=== PATIENT | male | born 1970 | race Caucasian/White ===

== ENCOUNTER 2020-07-23 10:36 | Emergency (ER) | payer OTHER ==
[2020-07-23] MEDS ORDERED: Dexamethasone 4 MG Tab PO STA (11:18)
[2020-07-23] MEDS ORDERED: Ketorolac 15 MG/ML SDV IM ONE (11:18)
--- NOTE | 2020-07-23 12:36 | CT ---
Indication: Left low back pain with numbness Technique: Volumetric multidetector CT images of the lumbar spine were obtained without the administration of IV contrast. Comparison: None available. Findings: The lumbar vertebral body heights are grossly maintained. There is mild degenerative disc disease with minimal disc height loss and marginal osteophyte formation. There is minimal straightening of the normal lumbar lordosis with trace anterolisthesis of L4 on L5. There are small disc protrusions at multiple levels the largest at the L4-L5 and L5-S1 levels. There is moderate epidural lipomatosis of the L4-L5 and L5-S1 levels with moderate spinal canal effacement. There is moderate multilevel facet arthrosis. There is no displaced fracture or dislocation. The paraspinous soft tissues are grossly within normal limits. Impression: Mild multilevel degenerative disc disease worst at the L4-L5 and L5-S1 levels without evidence of acute osseous abnormality. Please note that all CT scans at this facility use dose modulation, iterative reconstruction, and/or weight-based dosing when appropriate to reduce radiation dose to as low as reasonably achievable. Dictated by Marshall Murry MD @ 07/23/2020 12:35:[address] Marshall Murry @ Jul 23 2020 12:35PM
--- NOTE | 2020-07-23 13:12 | EDM.PDOC ---
ED HPI GENERAL MEDICAL PROBLEM - General Chief Complaint: Back Pain or Injury Time Seen by Provider: 07/23/20 10:46 - History of Present Illness INITIAL COMMENTS - FREE TEXT/NARRATIVE: CHIEF COMPLAINT(S): Back pain HISTORY OF PRESENT ILLNESS: This is a 50-year-old man with a past medical history of chronic back pain that began when he was 21 years old when he was in the and a dummy was dropped onto his back Who comes to the emergency department with a chief complaint of back pain. The patient states that he is experiencing sharp pain which starts in the center and wraps around his left extremity which he rates as 6-7 out of 10 and intermittent. States that he is also experiencing some paresthesias of the right thigh. He denies any bowel incontinence, urinary incontinence, decrease sensation when wiping. He denies any fevers or chills or IV drug use. He denies any rash. He states that he is able to ambulate however it is painful. He states that he was evaluated at the [facility] for this and underwent physical therapy which did help initially and that ended approximately 6 weeks ago. He states that the pain was fine and then it slowly returned. States that he followed up with his primary care physician today and they told him to come to the emergency department. He states that he has tried ibuprofen without any relief and movement seems to exacerbate the pain. He states that he has not been doing any exercises and just stays still. Denies any other red flag symptoms. REVIEW OF SYSTEMS: Constitutional: Denies fever, chills. Eyes: Denies eye pain Ears, Nose, Mouth, & Throat: Denies earache Cardiovascular: Denies chest pain Respiratory: Denies shortness of breath Gastrointestinal: Denies bowel incontinence, nausea, vomiting, diarrhea, hematochezia. Genitourinary: Denies hematuria, urinary incontinence Skin:Denies a rash MSK: Positive for left lower back pain with radiation down left leg Neurological: Positive for left lower extremity paresthesias. Denies headache, blurred vision psychiatric: Denies depression PAST MEDICAL HISTORY: As per history of present illness and as reviewed below otherwise noncontributory. SURGICAL HISTORY: As per history of present illness and as reviewed below otherwise noncontributory. SOCIAL HISTORY: As per history of present illness and as reviewed below otherwise noncontributory. FAMILY HISTORY: As per history of present illness and as reviewed below otherwise noncontributory. EXAMINATION OF ORGAN SYSTEMS/BODY AREAS: Constitutional: Blood pressure is 171/99, heart rate 83, respiratory rate 18 with an oxygen saturation 97% on room air. Temperature 36.4 General: Overall well-appearing man who is in no acute distress. Psychiatric: Appropriate mood and affect. Eyes: No scleral icterus or conjunctival erythema ENMT: Moist mucous membranes. No pharyngeal erythema Cardiovascular: Regular, rate, and rhythm. No gallops, murmurs, or rubs. Bilateral upper extremity pulses symmetric and intact. No peripheral edema. No JVD. Respiratory: Lungs clear to auscultation bilaterally. No wheezes, rales, or rhonchi. Gastrointestinal: Soft, non-tender, non-distended. Normoactive bowel sounds Genitourinary: No suprapubic tenderness Musculoskeletal: The patient can fully flex and extend at the hips however there is pain on the left side when he does this. Negative straight leg test. Distal sensation is intact. On palpating the left buttock area there is severe tenderness to palpation with radiation down his leg. No midline cervical, thoracic, or lumbar spinal tenderness Skin: No lesions or abrasions. Neurological: Alert, GCS 15 distal sensation is intact. Gait is normal. MEDICAL DECISION MAKING AND COURSE IN THE ED WITH INTERPRETATION/REVIEW OF DIAGNOSTIC STUDIES: This is a 50-year-old man with a past medical history of chronic back pain that began when he was 21 years old when he was in the and a dummy was dropped onto his back Who comes to the emergency department with acute on chronic lower back pain without any red flag symptoms. We did obtain a bladder scan prevoid which was 365. The patient did need to urinate therefore we will get a post void residual. At this time we will treat the patient symptomatically with Decadron and Toradol. Will obtain a lumbar spine without contrast. I do not believe any further labs or imaging are indicated. Post void residual was 15 cc. The patient is adequately urinating and there is no signs of urinary retention. The radiological images were viewed by myself along with reading the report from the radiologist. Lumbar spine CT without contrast reveals multilevel degenerative disc disease worse at L4 and L5 and L5-S1 without any osseous abnormality. There is a moderate epidural lipomatosis of the L4-L5 and L5-S1 levels with moderate spinal canal effacement. After the image given the moderate spinal canal effacement I did speak with Dr. Lr neurosurgeon at [facility] in [place] who recommended conservative management. She states that this patient does not require any surgery. She states that the patient can follow-up in the clinic if he would like to be evaluated by neurosurgeon otherwise treat the pain with Tylenol, Motrin and movement exercises. I did discuss results with the patient. I discussed that he should follow-up with primary care physician and I did provide him the number with neurosurgery and gave him strict return precautions. I also provided him with a pain clinic number for further management of his pain. He was amenable discharge at this time and had no further questions DISPOSITION: The patient was discharged home in stable condition. The patient will follow up with primary care physician in 3 to 5 days CONDITION: Fair PROCEDURES: None FINAL IMPRESSION(S)/DIAGNOSES: 1. Acute on chronic pain secondary to degenerative disc disease of the L-spine Artem Aparicio M.D. Back Pain Score (Numeric/FACES): 7 - Related Data Allergies Allergy/AdvReac Type Severity Reaction Status Date / Time No Known Allergies Allergy Verified 07/23/20 10:54 Home Meds: Home Meds Allopurinol [Zyloprim] 300 mg PO DAILY 07/23/20 [History] Colchicine [Mitigare] 0.6 mg PO DAILY 07/23/20 [History] Losartan [Cozaar] 75 mg PO DAILY 07/23/20 [History] allopurinoL [Zyloprim] 100 mg PO DAILY 07/23/20 [History] atorvaSTATin [Lipitor] 10 mg PO DAILY 07/23/20 [History] Past Medical History Cardiovascular History: Reports: Hypertension Musculoskeletal History: Reports: Gout - Infectious Disease History Infectious Disease History: Reports: Chicken Pox Social & Family History - Family History Family Medical History: No Pertinent Family History - Tobacco Use Tobacco Use Status *Q: Current Every Day Tobacco User Years of Tobacco use: 25 Packs/Tins Daily: 2 - Caffeine Use Caffeine Use: Reports: Coffee - Recreational Drug Use Recreational Drug Use: No ED ROS GENERAL - Review of Systems Review Of Systems: See Below ED EXAM, GENERAL - Physical Exam Exam: See Below Course - Vital Signs Last Recorded V/S: Last Vital Signs Temp 36.4 C 07/23/20 10:43 Pulse 77 07/23/20 13:10 Resp 18 07/23/20 13:10 BP 126/90 07/23/20 13:10 Pulse Ox 97 07/23/20 13:10 - Orders/Labs/Meds Meds: Medications Discontinued Medications Generic Name Dose Route Start Last Admin Trade Name Jeannette PRN Reason Stop Dose Admin Dexamethasone 12 mg 07/23/20 11:18 07/23/20 11:37 Dexamethasone 4 Mg Tab PO 07/23/20 11:19 12 mg ONETIME STA Administration Ketorolac Tromethamine 15 mg 07/23/20 11:18 07/23/20 11:37 Ketorolac 15 Mg/Ml Sdv IM 07/23/20 11:19 15 mg ONETIME ONE Administration Departure - Departure Time of Disposition: 13:11 Disposition: Home, Self-Care 01 Condition: Fair Clinical Impression: Degenerative disc disease - Discharge Information Instructions: Degenerative Disk Disease, Chronic Back Pain, Mhcz-sl-Dire Referrals: Adrian Gonzales BIT SHAVER [Primary Care Provider] - Forms: ED Department Discharge Additional Instructions: Mr. Khalil you were evaluated here in the emergency department today On an emergent basis. At this time you do not have any red flag symptoms such as urinating or defecating on yourself accidentally, decreased sensation around your rectum, fever. We did obtain a CT of your lumbar spine which did show some arthritis of your spine and some moderate amount of fat in the epidural space. We did discuss this with neurosurgeon Dr. Lr at [facility] in [place] and she recommends conservative treatment at this time with exercises, pain relief and follow-up with your primary care physician. If you are concerned you are welcome to contact your office to set up an appointment. She is in office on Fridays. In addition if you have continued pain there is a number below to contact for the pain management clinic. Please take Tylenol and Motrin for pain relief. Please return for any new or worsening symptoms. Please use: Tylenol 500-1000mg every 6 hours (DO NOT TAKE MORE THAN 4000mg in 1 day) Ibuprofen 400mg every 6 hours (Take with food as it can cause ulcers, GI upset) Example schedule: 8:00 AM (Tylenol 500-1000mg) 11:00 AM (Ibuprofen 400mg) 2:00 PM (Tylenol 500-1000mg) 5:00 PM (Ibuprofen 400mg) In addition to Tylenol and Motrin you may use over the counter creams such as Voltaren Cream or Lidocaine Cream (Lidoderm) as needed 4 times a day for symptomatic relief. Ice the area 20 minutes 4 times per day [facility] [address] [place] [address] [id number] [facility] [address] Lr Neurosurgery [phone] The patient is informed of any results of their evaluation and diagnostic workup and all questions are answered. They are given discharge instructions and return precautions. The patient is stable for discharge. The patient states they understand and agree with the plan and that they will return if their symptoms get worse or if they have any new concerns. The following information is given to patients seen in the emergency department who are being discharged to home. This information is to outline your options for follow-up care. We provide all patients seen in our emergency department with a follow-up referral. The need for follow-up, as well as the timing and circumstances, are variable depending upon the specifics of your emergency department visit. If you don't have a primary care physician on staff, we will provide you with a referral. We always advise you to contact your personal physician following an emergency department visit to inform them of the circumstance of the visit and for follow-up with them and/or the need for any referrals to a consulting specialist. The emergency department will also refer you to a specialist when appropriate. This referral assures that you have the opportunity for follow-up care with a specialist. All of these measure are taken in an effort to provide you with optimal care, which includes your follow-up. Under all circumstances we always encourage you to contact your private physician who remains a resource for coordinating your care. When calling for follow-up care, please make the office aware that this follow-up is from your recent emergency room visit. If for any reason you are refused follow-up, please contact the [facility] Department at and asked to speak to the emergency department charge nurse. Sepsis Event Note (ED) - Evaluation Sepsis Screening Result: No Definite Risk
== END 2020-07-23 13:30 | disposition home or self-care (01) ==
LOC: MW.ED 10:36
DX: M51.36 Other intervertebral disc degeneration, lumbar region (principal); I10 Essential (primary) hypertension; M10.9 Gout, unspecified; Z72.0 Tobacco use; Z79.899 Other long term (current) drug therapy
CPT/HCPCS: 72131; 96372; 99283; J1885; J8540

== ENCOUNTER 2023-01-05 08:26 | Emergency (ER) | payer BC ==
[2023-01-05] MEDS ORDERED: Sodium Chloride 0.9% 2.5 ML Syringe FLUSH PRN (08:33)
[2023-01-05] MEDS ORDERED: Sodium Chloride 0.9% 10 ML Syringe FLUSH PRN (08:33)
[2023-01-05] MEDS ORDERED: Lactated Ringers 1,000 ML IV ONE (08:33)
[2023-01-05 08:49] LABS: BASE EXCESS VENOUS -3.8 (-2.0-3.0); PH,VENOUS 7.35 (7.31-7.41)
[2023-01-05 08:52] LABS: APPEARANCE,URINE CLEAR; BILIRUBIN,URINE NEGATIVE (NEGATIVE); COLOR,URINE YELLOW; GLUCOSE,URINE >=1000 mg/dL (NEGATIVE); KETONES,URINE 40 mg/dL (NEGATIVE); LEUKOCYTE ESTERASE,URINE NEGATIVE (NEGATIVE); NITRITE,URINE NEGATIVE (NEGATIVE); OCCULT BLOOD,URINE TRACE-INTACT (NEGATIVE); PH,URINE 5.5 (5.0-8.0); PROTEIN,URINE 100 mg/dL (NEGATIVE); UROBILINOGEN,URINE 0.2 EU/dL (<2.0)
[2023-01-05 09:04] LABS: RBC,URINE 0-2 (0-2/HPF)
[2023-01-05 09:05] LABS: EPITHELIAL CELLS,URINE RARE (NONE-FEW); WBC,URINE 0-2 (0-5/HPF)
[2023-01-05 09:31] LABS: HEMOGLOBIN A1C 13.6 %
[2023-01-05 09:52] LABS: BASOPHILS PERCENT AUTO 1.3 % (0.0-1.0); EOSINOPHILS ABSOLUTE AUTO 0.12 K/uL (0.00-0.45); EOSINOPHILS PERCENT AUTO 1.5 % (0.0-6.0); HEMATOCRIT 40.9 % (42.0-52.0); IMMATURE GRAN ABSOLUTE AUTO 0.12 K/uL (0.00-0.05); IMMATURE GRAN PERCENT AUTO 1.5 % (0.0-0.4); LYMPHOCYTES ABSOLUTE AUTO 2.22 K/uL (1.00-4.80); LYMPHOCYTES PERCENT AUTO 28.5 % (24.0-44.0); MEAN CORPUSCULAR VOLUME 81.6 fL (83.0-99.0); MEAN PLATELET VOLUME 10.7 fL (9.4-12.4); MONOCYTES ABSOLUTE AUTO 0.64 K/uL (0.00-0.80); MONOCYTES PERCENT AUTO 8.2 % (0.0-8.0); NRBC ABSOLUTE 0.06 K/uL (0.00-0.02); NRBC PERCENT 0.8 /100WBC (0.0-0.2); PLATELET COUNT,PLT 238 K/uL (150-400); RED BLOOD CELL COUNT 5.01 M/uL (4.52-5.90)
[2023-01-05 10:00] LABS: A/G RATIO 1.2 (0.9-1.6); ALBUMIN 4.1 g/dL (3.4-5.0); BILIRUBIN TOTAL 0.6 mg/dL (0.2-1.0); CALCIUM 9.7 mg/dL (8.5-10.1); CARBON DIOXIDE,CO2 22.1 mmol/L (21.0-32.0); CREATININE 1.1 mg/dL (0.8-1.3); EST CRCL DRUG DOSING (CG) 82.95 mL/min; MAGNESIUM 1.8 mg/dL (1.8-2.4); PHOSPHORUS 5.1 mg/dL (2.6-4.7); POTASSIUM,K 4.4 mmol/L (3.5-5.1); PROTEIN TOTAL,TP 7.6 g/dL (6.4-8.2); TSH ULTRASENSITIVE 2.68 uIU/mL (0.36-3.74)
[2023-01-05 10:06] LABS: HEMOGLOBIN 13.7 g/dL (14.0-18.0); MEAN CORPUSCULAR HEMOGLOBIN 27.4 pg (28.0-32.0)
[2023-01-05 10:09] LABS: MEAN CORPUSCULAR HGB CONC 33.5 g/dL (32.0-36.0)
[2023-01-05] MEDS ORDERED: Sodium Chloride 0.9% 1,000 ML IV ONE (10:31)
[2023-01-05] MEDS ORDERED: Glucagon,Human Recombinant 1 MG Vial IM PRN (10:32)
[2023-01-05] MEDS ORDERED: Insulin Aspart 100 Units/ML 3 ML Pen SUBCUT STA (10:32)
[2023-01-05] MEDS ORDERED: 50% Dextrose in Water 50 ML Syringe IVPUSH PRN (10:32)
[2023-01-05] MEDS ORDERED: Insulin Glargine,Hum.Rec.Anlog 100 UNIT/ML 3 ML Pen SUBCUT STA (10:37)
== END 2023-01-05 13:49 | disposition home or self-care (01) ==
LOC: MW.ED 08:26
DX: E11.9 Type 2 diabetes mellitus without complications (principal); I10 Essential (primary) hypertension; Z79.899 Other long term (current) drug therapy; Z79.4 Long term (current) use of insulin
CPT/HCPCS: 36415; 70450; 71045; 80053; 81001; 82009; 82803; 82947; 83036; 83690; 83735; 84100; 84443; 84484; 85025; 93005; 96360; 96361; 99285; A9270; J3490; J7030; J7120; 93010; 99284

== ENCOUNTER 2023-05-30 10:46 | Emergency (ER) | payer BC ==
[2023-05-30] MEDS ORDERED: Ketorolac 30 MG/ML SDV IVPUSH ONE (11:20)
[2023-05-30] MEDS: Acetaminophen/HYDROcodone 325-5 MG Tab PO ONE (11:29)
[2023-05-30] MEDS: methylPREDNISolone Sodium Succinate 125 MG/2 ML SDV IVPUSH ONE (11:29)
[2023-05-30 11:46] LABS: BASOPHILS ABSOLUTE AUTO 0.09 K/uL (0.00-0.20); BASOPHILS PERCENT AUTO 0.8 % (0.0-1.0); EOSINOPHILS PERCENT AUTO 0.8 % (0.0-6.0); HEMATOCRIT 41.9 % (42.0-52.0); HEMOGLOBIN 14.7 g/dL (14.0-18.0); IMMATURE GRAN ABSOLUTE AUTO 0.07 K/uL (0.00-0.05); IMMATURE GRAN PERCENT AUTO 0.6 % (0.0-0.4); LYMPHOCYTES ABSOLUTE AUTO 2.73 K/uL (1.00-4.80); LYMPHOCYTES PERCENT AUTO 22.9 % (24.0-44.0); MEAN CORPUSCULAR HEMOGLOBIN 29.1 pg (28.0-32.0); MEAN CORPUSCULAR HGB CONC 35.1 g/dL (32.0-36.0); MEAN PLATELET VOLUME 8.8 fL (9.4-12.4); MONOCYTES ABSOLUTE AUTO 1.18 K/uL (0.00-0.80); MONOCYTES PERCENT AUTO 9.9 % (0.0-8.0); NEUTROPHILS ABSOLUTE AUTO 7.77 K/uL (1.80-7.70); PLATELET COUNT,PLT 361 K/uL (150-400); RED BLOOD CELL COUNT 5.05 M/uL (4.52-5.90); WHITE BLOOD CELL COUNT,WBC 11.94 K/uL (3.9-11.3)
[2023-05-30] MEDS: fentaNYL 100 MCG/2 ML SDV IVPUSH ONE (11:58)
[2023-05-30 12:18] LABS: A/G RATIO 1.1 (0.9-1.6); BILIRUBIN TOTAL 0.6 mg/dL (0.2-1.0); C-REACTIVE PROTEIN 1.25 mg/dL (<0.3); CALCIUM 9.7 mg/dL (8.5-10.1); CARBON DIOXIDE,CO2 22.5 mmol/L (21.0-32.0); EST CRCL DRUG DOSING (CG) 81.71 mL/min; POTASSIUM,K 3.9 mmol/L (3.5-5.1); PROTEIN TOTAL,TP 7.7 g/dL (6.4-8.2); URIC ACID 3.4 mg/dL (2.6-7.2)
== END 2023-05-30 13:30 | disposition home or self-care (01) ==
LOC: MW.ED 10:46
DX: M25.522 Pain in left elbow (principal); M25.521 Pain in right elbow; M25.512 Pain in left shoulder; M25.511 Pain in right shoulder; M25.552 Pain in left hip; M25.551 Pain in right hip; I10 Essential (primary) hypertension; E11.9 Type 2 diabetes mellitus without complications; Z75.8 Other problems related to medical facilities and other health care; Z79.84 Long term (current) use of oral hypoglycemic drugs; Z79.899 Other long term (current) drug therapy; Z79.4 Long term (current) use of insulin; Z86.19 Personal history of other infectious and parasitic diseases
CPT/HCPCS: 36415; 80053; 82550; 84443; 84550; 85025; 85652; 86140; 96374; 96375; 99284; A9270; J2930; J3010

== ENCOUNTER 2023-07-13 06:31 | Emergency (ER) | payer OTHER, BC ==
[2023-07-13] MEDS: Acetaminophen/HYDROcodone 325-10 MG Tab PO ONE (07:40)
[2023-07-13] MEDS: Diazepam 2 MG Tab PO ONE (07:40)
== END 2023-07-13 08:54 | disposition home or self-care (01) ==
LOC: MW.ED 06:31
DX: M54.2 Cervicalgia (principal); M54.9 Dorsalgia, unspecified; M25.519 Pain in unspecified shoulder; E11.9 Type 2 diabetes mellitus without complications; Z79.899 Other long term (current) drug therapy; Z79.84 Long term (current) use of oral hypoglycemic drugs; Z79.4 Long term (current) use of insulin
CPT/HCPCS: 99283; A9270

== ENCOUNTER 2025-01-14 17:15 | Emergency (ER) | payer BC, OTHER ==
[2025-01-14] MEDS ORDERED: Sodium Chloride 0.9% 10 ML Syringe FLUSH PRN (17:17)
[2025-01-14] MEDS ORDERED: Sodium Chloride 0.9% 2.5 ML Syringe FLUSH PRN (17:17)
[2025-01-14 17:28] LABS: BASOPHILS ABSOLUTE AUTO 0.10 K/uL (0.00-0.20); BASOPHILS PERCENT AUTO 1.2 % (0.0-1.0); EOSINOPHILS ABSOLUTE AUTO 0.06 K/uL (0.00-0.45); EOSINOPHILS PERCENT AUTO 0.7 % (0.0-6.0); IMMATURE GRAN ABSOLUTE AUTO 0.06 K/uL (0.00-0.05); IMMATURE GRAN PERCENT AUTO 0.7 % (0.0-0.4); LYMPHOCYTES ABSOLUTE AUTO 3.11 K/uL (1.00-4.80); LYMPHOCYTES PERCENT AUTO 36.7 % (24.0-44.0); MEAN PLATELET VOLUME 9.9 fL (9.4-12.4); MONOCYTES ABSOLUTE AUTO 0.69 K/uL (0.00-0.80); MONOCYTES PERCENT AUTO 8.1 % (0.0-8.0); NEUTROPHILS ABSOLUTE AUTO 4.45 K/uL (1.80-7.70); NEUTROPHILS PERCENT AUTO 52.6 % (41.0-71.0); NRBC ABSOLUTE 0.00 K/uL (0.00-0.02); NRBC PERCENT 0.0 /100WBC (0.0-0.2); PLATELET COUNT,PLT 272 K/uL (150-400); RED BLOOD CELL COUNT 5.14 M/uL (4.52-5.90); WHITE BLOOD CELL COUNT,WBC 8.47 K/uL (3.9-11.3)
[2025-01-14] MEDS: Ondansetron 4 MG/2 ML SDV IVPUSH ONE (17:37)
[2025-01-14 17:41] LABS: INR 1.02 (0.86-1.11)
[2025-01-14] MEDS ORDERED: niCARdipine/Normal Saline 20 MG/200 ML BAG IV SCH (17:45)
[2025-01-14] MEDS: levETIRAcetam 500 MG/5 ML SDV IVPUSH ONE (17:52)
[2025-01-14] MEDS: Labetalol 100 MG/20 ML MDV IVPUSH ONE (17:53)
[2025-01-14 18:06] LABS: A/G RATIO 1.2 (0.9-1.6); ALANINE AMINOTRANSFERASE,ALT 33 IU/L (14-63); ASPARTATE AMNIOTRANSFERASE,AST 20 IU/L (15-37); BILIRUBIN TOTAL 0.4 mg/dL (0.2-1.0); BLOOD UREA NITROGEN,BUN 12 mg/dL (7.0-18.0); CARBON DIOXIDE,CO2 22.2 mmol/L (21.0-32.0); CHLORIDE,CL 95 mmol/L (98-107); CREATININE 1.1 mg/dL (0.8-1.3); ESTIMATED GFR 81 mL/min (>60); ETHANOL BLOOD MEDICAL 103 mg/dL; GLUCOSE RANDOM 332 mg/dL (74-106); POTASSIUM,K 3.5 mmol/L (3.5-5.1); PROTEIN TOTAL,TP 7.3 g/dL (6.4-8.2); SODIUM,NA 129 mmol/L (136-148)
[2025-01-14] MEDS: Diphtheria,Pertussis(Acell),Tetanus Vaccine 0.5 ML Syringe IM ONE (18:27)
[2025-01-14] MEDS: niCARdipine/Normal Saline 20 MG/200 ML BAG IV SCH (18:55)
== END 2025-01-14 19:07 ==
LOC: MW.ED 17:15
DX: S06.5X1A Traumatic subdural hemorrhage with loss of consciousness of 30 minutes or less, initial encounter (principal); S06.6X1A Traumatic subarachnoid hemorrhage with loss of consciousness of 30 minutes or less, initial encounter; S01.01XA Laceration without foreign body of scalp, initial encounter; F10.120 Alcohol abuse with intoxication, uncomplicated; E11.9 Type 2 diabetes mellitus without complications; I10 Essential (primary) hypertension; R91.1 Solitary pulmonary nodule; Z79.899 Other long term (current) drug therapy; Z23 Encounter for immunization; Y90.5 Blood alcohol level of 100-119 mg/100 ml; Z79.84 Long term (current) use of oral hypoglycemic drugs; Y04.8XXA Assault by other bodily force, initial encounter; Y92.511 Restaurant or cafe as the place of occurrence of the external cause
CPT/HCPCS: 12001; 36415; 70450; 71045; 72125; 80053; 80307; 83690; 85025; 85610; 85730; 90471; 90715; 93005; 96374; 96375; 99285; J1920; J1953; J2404; J2405; 93010

== ENCOUNTER 2025-01-19 18:52 | Emergency (ER) | payer SELFPAY ==
[2025-01-19] MEDS ORDERED: Sodium Chloride 0.9% 2.5 ML Syringe FLUSH PRN (19:00)
[2025-01-19] MEDS ORDERED: Sodium Chloride 0.9% 10 ML Syringe FLUSH PRN (19:00)
[2025-01-19] MEDS ORDERED: Labetalol 100 MG/20 ML MDV IVPUSH ONE (19:09)
[2025-01-19] MEDS ORDERED: Naloxone 0.4 MG/ML SDV IVPUSH PRN (19:20)
[2025-01-19 19:21] LABS: BASOPHILS ABSOLUTE AUTO 0.04 K/uL (0.00-0.20); BASOPHILS PERCENT AUTO 0.4 % (0.0-1.0); EOSINOPHILS ABSOLUTE AUTO 0.01 K/uL (0.00-0.45); EOSINOPHILS PERCENT AUTO 0.1 % (0.0-6.0); IMMATURE GRAN ABSOLUTE AUTO 0.05 K/uL (0.00-0.05); IMMATURE GRAN PERCENT AUTO 0.5 % (0.0-0.4); LYMPHOCYTES ABSOLUTE AUTO 1.29 K/uL (1.00-4.80); LYMPHOCYTES PERCENT AUTO 13.1 % (24.0-44.0); MEAN PLATELET VOLUME 9.8 fL (9.4-12.4); MONOCYTES ABSOLUTE AUTO 0.86 K/uL (0.00-0.80); MONOCYTES PERCENT AUTO 8.7 % (0.0-8.0); NEUTROPHILS ABSOLUTE AUTO 7.60 K/uL (1.80-7.70); NEUTROPHILS PERCENT AUTO 77.2 % (41.0-71.0); NRBC ABSOLUTE 0.00 K/uL (0.00-0.02); NRBC PERCENT 0.0 /100WBC (0.0-0.2); PLATELET COUNT,PLT 307 K/uL (150-400); RED BLOOD CELL COUNT 4.84 M/uL (4.52-5.90); WHITE BLOOD CELL COUNT,WBC 9.85 K/uL (3.9-11.3)
[2025-01-19] MEDS: Ondansetron 4 MG/2 ML SDV IVPUSH ONE (19:23)
[2025-01-19 19:36] LABS: INR 1.06 (0.86-1.11); PTT,PARTIAL THROMBOPLSTIN TIME 27.3 SEC (23.9-30.7)
[2025-01-19 19:48] LABS: A/G RATIO 0.8 (0.9-1.6); ALANINE AMINOTRANSFERASE,ALT 21.0 IU/L (14-63); ASPARTATE AMNIOTRANSFERASE,AST 15.0 IU/L (15-37); BILIRUBIN TOTAL 0.7 mg/dL (0.2-1.0); BLOOD UREA NITROGEN,BUN 12.0 mg/dL (7.0-18.0); CARBON DIOXIDE,CO2 25.9 mmol/L (21.0-32.0); CHLORIDE,CL 99.0 mmol/L (98-107); CREATININE 1.0 mg/dL (0.8-1.3); EST CRCL DRUG DOSING (CG) 83.6 mL/min; GLUCOSE RANDOM 245.0 mg/dL (74-106); POTASSIUM,K 3.9 mmol/L (3.5-5.1); PROTEIN TOTAL,TP 7.0 g/dL (6.4-8.2); SODIUM,NA 135.0 mmol/L (136-148)
[2025-01-19 19:55] LABS: ESTIMATED GFR 91.0 mL/min (>60)
[2025-01-19] MEDS: Metoprolol Tartrate 5 MG/5 ML SDV IVPUSH ONE (19:57)
[2025-01-19] MEDS: niCARdipine/Normal Saline 20 MG/200 ML BAG IV SCH (20:29)
== END 2025-01-19 20:31 ==
LOC: MW.ED 18:52
DX: S06.36AA Traumatic hemorrhage of cerebrum, unspecified, with loss of consciousness status unknown, initial encounter (principal); I10 Essential (primary) hypertension; E11.9 Type 2 diabetes mellitus without complications; Z79.84 Long term (current) use of oral hypoglycemic drugs; Z79.899 Other long term (current) drug therapy; X58.XXXA Exposure to other specified factors, initial encounter
CPT/HCPCS: 36415; 70450; 80053; 83690; 83735; 85025; 85610; 85730; 96374; 96375; 99285; J0616; J2404; J2405; A9270-GY; J1171

== ENCOUNTER 2025-01-22 22:14 | Observation (INO) | payer SELFPAY ==
[2025-01-22] MEDS ORDERED: Sodium Chloride 0.9% 10 ML Syringe FLUSH PRN (22:22)
[2025-01-22] MEDS ORDERED: Sodium Chloride 0.9% 2.5 ML Syringe FLUSH PRN (22:22)
[2025-01-22 22:29] LABS: BASE EXCESS VENOUS 4.8 (-2.0-3.0); BASOPHILS ABSOLUTE AUTO 0.07 K/uL (0.00-0.20); BASOPHILS PERCENT AUTO 0.7 % (0.0-1.0); BICARBONATE,VENOUS 29.0 mEq/L (22-29); EOSINOPHILS ABSOLUTE AUTO 0.08 K/uL (0.00-0.45); EOSINOPHILS PERCENT AUTO 0.8 % (0.0-6.0); IMMATURE GRAN ABSOLUTE AUTO 0.14 K/uL (0.00-0.05); IMMATURE GRAN PERCENT AUTO 1.3 % (0.0-0.4); LYMPHOCYTES ABSOLUTE AUTO 2.47 K/uL (1.00-4.80); LYMPHOCYTES PERCENT AUTO 23.3 % (24.0-44.0); MEAN PLATELET VOLUME 9.5 fL (9.4-12.4); MONOCYTES ABSOLUTE AUTO 1.29 K/uL (0.00-0.80); MONOCYTES PERCENT AUTO 12.2 % (0.0-8.0); NEUTROPHILS ABSOLUTE AUTO 6.55 K/uL (1.80-7.70); NEUTROPHILS PERCENT AUTO 61.7 % (41.0-71.0); NRBC ABSOLUTE 0.00 K/uL (0.00-0.02); NRBC PERCENT 0.0 /100WBC (0.0-0.2); PCO2 VENOUS 41.0 mmHG (41-51); PH,VENOUS 7.46 (7.32-7.43); PLATELET COUNT,PLT 431 K/uL (150-400); PO2 VENOUS 48.0 mmHG (35-45); RED BLOOD CELL COUNT 5.46 M/uL (4.52-5.90); WHITE BLOOD CELL COUNT,WBC 10.60 K/uL (3.9-11.3)
[2025-01-22] MEDS: Iopamidol 755 MG/ML 500 ML Multipack Bottle IVPUSH STA (22:33)
[2025-01-22 22:56] LABS: A/G RATIO 0.9 (0.9-1.6); ALANINE AMINOTRANSFERASE,ALT 29 IU/L (14-63); ASPARTATE AMNIOTRANSFERASE,AST 20 IU/L (15-37); BILIRUBIN TOTAL 0.3 mg/dL (0.2-1.0); BLOOD UREA NITROGEN,BUN 25 mg/dL (7.0-18.0); CARBON DIOXIDE,CO2 27.2 mmol/L (21.0-32.0); CHLORIDE,CL 94 mmol/L (98-107); CREATININE 1.4 mg/dL (0.8-1.3); POTASSIUM,K 3.9 mmol/L (3.5-5.1); PROTEIN TOTAL,TP 7.7 g/dL (6.4-8.2); SODIUM,NA 131 mmol/L (136-148)
[2025-01-22 22:57] LABS: ESTIMATED GFR 60 mL/min (>60); GLUCOSE RANDOM 530 mg/dL (74-106)
[2025-01-22] MEDS ORDERED: 50% Dextrose in Water 50 ML Syringe IVPUSH PRN (22:58)
[2025-01-22] MEDS: Insulin Regular, Human 100 Units/ML 10 ML Vial IVPUSH ONE (23:08)
[2025-01-22 23:18] LABS: INR 0.93 (0.86-1.11); PTT,PARTIAL THROMBOPLSTIN TIME 24.3 SEC (23.9-30.7)
[2025-01-23] MEDS ORDERED: Sodium Chloride 0.9% 10 ML Syringe FLUSH PRN (08:10)
[2025-01-23] MEDS ORDERED: Sodium Chloride 0.9% 2.5 ML Syringe FLUSH PRN (08:10)
[2025-01-23] MEDS ORDERED: 50% Dextrose in Water 50 ML Syringe IVPUSH PRN (08:17)
[2025-01-23 10:04] LABS: BASOPHILS ABSOLUTE AUTO 0.06 K/uL (0.00-0.20); BASOPHILS PERCENT AUTO 0.6 % (0.0-1.0); EOSINOPHILS ABSOLUTE AUTO 0.08 K/uL (0.00-0.45); EOSINOPHILS PERCENT AUTO 0.8 % (0.0-6.0); IMMATURE GRAN ABSOLUTE AUTO 0.15 K/uL (0.00-0.05); IMMATURE GRAN PERCENT AUTO 1.5 % (0.0-0.4); LYMPHOCYTES ABSOLUTE AUTO 1.98 K/uL (1.00-4.80); LYMPHOCYTES PERCENT AUTO 19.1 % (24.0-44.0); MEAN PLATELET VOLUME 9.0 fL (9.4-12.4); MONOCYTES ABSOLUTE AUTO 1.15 K/uL (0.00-0.80); MONOCYTES PERCENT AUTO 11.1 % (0.0-8.0); NEUTROPHILS ABSOLUTE AUTO 6.92 K/uL (1.80-7.70); NEUTROPHILS PERCENT AUTO 66.9 % (41.0-71.0); NRBC ABSOLUTE 0.00 K/uL (0.00-0.02); NRBC PERCENT 0.0 /100WBC (0.0-0.2); PLATELET COUNT,PLT 410 K/uL (150-400); RED BLOOD CELL COUNT 4.80 M/uL (4.52-5.90); WHITE BLOOD CELL COUNT,WBC 10.34 K/uL (3.9-11.3)
[2025-01-23 10:28] LABS: A/G RATIO 0.9 (0.9-1.6); ALANINE AMINOTRANSFERASE,ALT 22.0 IU/L (14-63); ASPARTATE AMNIOTRANSFERASE,AST 12.0 IU/L (15-37); BILIRUBIN TOTAL 0.4 mg/dL (0.2-1.0); BLOOD UREA NITROGEN,BUN 15.0 mg/dL (7.0-18.0); CARBON DIOXIDE,CO2 31.2 mmol/L (21.0-32.0); CHLORIDE,CL 102.0 mmol/L (98-107); CREATININE 1.1 mg/dL (0.8-1.3); EST CRCL DRUG DOSING (CG) 76.0 mL/min; GLUCOSE RANDOM 342.0 mg/dL (74-106); POTASSIUM,K 4.1 mmol/L (3.5-5.1); PROTEIN TOTAL,TP 6.5 g/dL (6.4-8.2); SODIUM,NA 139.0 mmol/L (136-148)
[2025-01-23 10:39] LABS: ESTIMATED GFR 81.0 mL/min (>60)
[2025-01-23] MEDS: Insulin Glargine,Human Rec. Analog 100 Units/ML 3 ML Pen SUBCUT SCH (11:06)
[2025-01-23] MEDS: Gadoteridol 279.3 MG/ML 20 ML SDV IVPUSH ONE (12:40)
[2025-01-24] MEDS ORDERED: NIFEdipine 30 MG Tab.ER PO SCH (07:30)
== END 2025-01-23 16:45 | disposition home or self-care (01) ==
LOC: MW.ED 22:14 → MW.MS 01-23 00:04
PROVIDERS: ADMIT Internal Medicine; ATTEND Internal Medicine
DX: G45.9 Transient cerebral ischemic attack, unspecified (principal); S06.6X9A Traumatic subarachnoid hemorrhage with loss of consciousness of unspecified duration, initial encounter; S06.5X1A Traumatic subdural hemorrhage with loss of consciousness of 30 minutes or less, initial encounter; I10 Essential (primary) hypertension; E11.9 Type 2 diabetes mellitus without complications; R29.818 Other symptoms and signs involving the nervous system; R56.9 Unspecified convulsions; Z79.4 Long term (current) use of insulin; Z79.84 Long term (current) use of oral hypoglycemic drugs; Z79.899 Other long term (current) drug therapy
CPT/HCPCS: 36415; 70450; 70450-26; 70496; 70496-26; 70498; 70498-26; 70553; 70553-26; 80053; 82009; 82803; 82947; 83735; 84484; 85025; 85610; 85730; 93005; 99236; 99285; A9270-GY; A9579; G0378; J1815-GY; J7030; Q9967